=== PATIENT | male | born 1965 | race Hispanic/Latino ===

== ENCOUNTER 2018-01-19 01:35 | Emergency (ER) | payer OTHER ==
--- NOTE | 2018-01-19 03:57 | ED PDOC ---
Arrival/HPI <Kane Mckinnon - Last Filed: 01/19/18 05:13> - General Historian: Patient - History of Present Illness Time/Duration: Prior to Arrival Symptom Onset: Sudden Symptom Course: Improving Quality: Aching Severity Level: 2 Context: Slipped <Robin Hsu - Last Filed: 01/19/18 05:30> - General Chief Complaint: Lower Extremity Problem/Injury Time Seen by Provider: 01/19/18 02:18 - History of Present Illness Narrative History of Present Illness (Text): 01/19/18 04:08 Patient is a 52 M with no significant past medical history who presents to the emergency department with complaints of pain in right foot s/p slipping when coming down from his truck. Patient states the pain was initially a 5/10 and is now a 2/10. Patient denies any popping sensation when the incident occured. Patient is able to move his right foot with ROM in tact. (Robin Hsu) Past Medical History - Provider Review Nursing Documentation Reviewed: Yes - Cardiac Hx CO: Yes (2004) - Pulmonary Hx Respiratory Disorders: No - Neurological Hx Neurological Disorder: No - HEENT Hx HEENT Disorder: No - Renal Hx Renal Disorder: No - Endocrine/Metabolic Hx Endocrine Disorders: No - Hematological/Oncological Hx Blood Disorders: No - Integumentary Hx Dermatological Disorder: No - Musculoskeletal/Rheumatological Hx Musculoskeletal Disorders: No - Gastrointestinal Hx Gastrointestinal Disorders: No - Genitourinary/Gynecological Hx Genitourinary Disorders: No - Psychiatric Hx Psychophysiologic Disorder: No Hx Substance Use: No - Surgical History Hx Appendectomy: Yes Hx Coronary Stent: Yes (2004 x8) Hx Orthopedic Surgery: Yes (2001 left rotator cuff) Other/Comment: 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- pass lad <Robin Hsu - Last Filed: 01/19/18 05:30> Family/Social History - Physician Review Nursing Documentation Reviewed: Yes Family/Social History: Other (non-contributory) Smoking Status: Former Smoker Hx Alcohol Use: Yes Frequency of alcohol use: Socially Hx Substance Use: No <Robin Hsu - Last Filed: 01/19/18 05:30> Allergies/Home Meds <Kane Mckinnon - Last Filed: 01/19/18 05:13> <Robin Hsu - Last Filed: 01/19/18 05:30> Allergies/Adverse Reactions: Allergies No Known Allergies Allergy (Verified 01/19/18 01:51) Home Medications: Home Meds Medication Instructions Recorded Confirmed Aspirin [Aspirin Chewable] 81 mg PO DAILY 01/19/18 01/19/18 Atorvastatin [Lipitor] 60 mg PO DAILY 01/19/18 01/19/18 Clopidogrel [Plavix] 75 mg PO DAILY 01/19/18 01/19/18 Cyanocobalamin [Vitamin B12 100 100 mcg PO DAILY 01/19/18 01/19/18 mcg Tab] Enalapril Maleate [Vasotec] 2.5 mg PO DAILY 01/19/18 01/19/18 Esomeprazole Magnesium [Nexium] 40 mg PO DAILY 01/19/18 01/19/18 Metoprolol Tartrate [Lopressor] 12.5 mg PO DAILY 01/19/18 01/19/18 [place]-3/Dha/Epa/Fish Oil [Fish Oil 1 each PO DAILY 01/19/18 01/19/18 [place]-3 EC 1,200 mg] Pyridoxine HCl (Vitamin B6) 100 mg PO DAILY 01/19/18 01/19/18 [Vitamin B-6] Review of Systems - Physician Review All systems were reviewed & negative as marked: Yes - Review of Systems Constitutional: Normal Eyes: Normal ENT: Normal Respiratory: Normal Cardiovascular: Normal Gastrointestinal: Normal Genitourinary Male: Normal Musculoskeletal: Normal Skin: Normal Neurological: Normal Endocrine: Normal Hemo/Lymphatic: Normal Psychiatric: Normal <Robin Hsu - Last Filed: 01/19/18 05:30> Physical Exam Vital Signs Reviewed: Yes Temperature: Afebrile Blood Pressure: Normal Pulse: Regular Respiratory Rate: Normal Appearance: Positive for: Well-Appearing, Non-Toxic, Comfortable Pain Distress: None Mental Status: Positive for: Alert and Oriented X 3 - Systems Exam Head: Present: Atraumatic, Normocephalic Pupils: Present: PERRL Extroacular Muscles: Present: EOMI Conjunctiva: Present: Normal Mouth: Present: Moist Mucous Membranes Neck: Present: Normal Range of Motion Respiratory/Chest: Present: Clear to Auscultation. No: Wheezes, Rhonchi Cardiovascular: Present: Regular Rate and Rhythm, Normal S1, S2. No: Murmurs Abdomen: Present: Normal Bowel Sounds. No: Tenderness Upper Extremity: Present: Normal Inspection Lower Extremity: Present: Normal ROM, Other (swelling of right ankle) Neurological: Present: GCS=15, CN II-XII Intact, Speech Normal Skin: Present: Warm, Erythematous (right ankle) Psychiatric: Present: Alert, Oriented x 3, Normal Insight, Normal Concentration <Robin Hsu - Last Filed: 01/19/18 05:30> Vital Signs Temp Pulse Resp BP Pulse Ox 01/19/18 04:00 98.2 F 68 17 128/72 96 01/19/18 01:51 98.0 F 63 18 123/72 99 Medical Decision Making <Kane Mckinnon - Last Filed: 01/19/18 05:13> Re-evaluation Time: 03:30 Reassessment Condition: Re-examined, Improved <Robin Hsu - Last Filed: 01/19/18 05:30> ED Course and Treatment: Patient Seen With Resident: In agreement with resident note which contains more details about the patient. Patient was seen and evaluated with resident. Came up with plan and treatment together. 52 year old male presents complaining of of pain to the right foot s/ p coming down from his truck. Plan: Ankle Left 3 views (Kane Mckinnon) 01/19/18 04:02 X-ray reading negative for fracture, official read pending For ankle sprainl continue with RICE. Injured foot bandaged and patient discharged with tylenol for pain control Patient to follow up with PMD regarding pain (Robin Hsu) - RAD Interpretation Radiology Orders: 01/19/18 02:23 ANKLE LEFT 3 VIEWS ROUTINE [RAD] Stat - Scribe Statement The provider has reviewed the documentation as recorded by the Scribe <Kane Mckinnon - Last Filed: 01/19/18 05:13> <Robin Hsu - Last Filed: 01/19/18 05:30> - Scribe Statement Rebecca Murdock Provider Scribe Attestation: All medical record entries made by the Scribe were at my direction and personally dictated by me. I have reviewed the chart and agree that the record accurately reflects my personal performance of the history, physical exam, medical decision making, and the department course for this patient. I have also personally directed, reviewed, and agree with the discharge instructions and disposition. (Kane Mckinnon) Disposition/Present on Arrival <Kane Mckinnon - Last Filed: 01/19/18 05:13> - Present on Arrival Any Indicators Present on Arrival: No History of DVT/PE: No History of Uncontrolled Diabetes: No Urinary Catheter: No History of Decub. Ulcer: No History Surgical Site Infection Following: None - Disposition Have Diagnosis and Disposition been Completed?: Yes Disposition Time: 03:53 Patient Plan: Discharge <ShadiRobin - Last Filed: 01/19/18 05:30> - Disposition Diagnosis: Ankle sprain Disposition: HOME/ ROUTINE Condition: GOOD Discharge Instructions (ExitCare): Ankle Sprain (DC) Additional Instructions: Mr. Roblero, thank you for letting us take care of you today. The emergency medical care you received today was directed at your acute symptoms. If you were prescribed any medication, please fill it and take as directed. It may take several days for your symptoms to resolve. Return to the Emergency Department if your symptoms worsen, do not improve, or if you have any other problems. Please contact your doctor or call one of the physicians/clinics you have been referred to that are listed on the Patient Visit Information form that is included in your discharge packet. Bring any paperwork you were given at discharge with you along with any medications you are taking to your follow up visit. Our treatment cannot replace ongoing medical care by a primary care provider (PCP) outside of the emergency department. Thank you for allowing the [facility] team to be part of your care today. If you had an X-Ray or CT scan: A Radiologist will review the ED reading if any change in treatment is needed we will contact you. If you had a blood, urine, or wound culture: It will take several days for the results, if any change in treatment is needed we will contact you. If you had an STI test: It will take 48 hours for the results. Please call after 1 week if you have not heard back. Prescriptions: Acetaminophen [Tylenol] 650 mg PO Q6H #28 capsule Forms: [employer] ([place]), WORK NOTE
[2018-01-19 04:01] VITALS: BP 128/72; PULSE 68; RESP 17; TEMP 98.2; O2SAT 96
--- NOTE | 2018-01-19 08:49 | RAD ---
PROCEDURE: Left Ankle Radiographs. HISTORY: ankle injury coming down from truck COMPARISON: None FINDINGS: BONES: Normal. No fracture. JOINTS: Normal. No osteoarthritis. Ankle mortise maintained. Talar dome intact SOFT TISSUES: Normal. OTHER FINDINGS: None. IMPRESSION: Normal left ankle radiographs.
== END 2018-01-19 04:01 | disposition home or self-care (01) ==
LOC: ED 01:35
DX: S93.402A Sprain of unspecified ligament of left ankle, initial encounter (principal); W17.89XA Other fall from one level to another, initial encounter; Y92.89 Other specified places as the place of occurrence of the external cause; Y99.8 Other external cause status